=== PATIENT | male | born 1945 | race Caucasian/White ===

== ENCOUNTER 2021-12-19 11:40 | Emergency (ER) | payer MEDICARE, OTHER ==
[2021-12-19] MEDS ORDERED: SODIUM CHLORIDE 0.9% 1,000 ML IV STA (11:54)
--- NOTE | 2021-12-19 11:56 | ED Physician Documentation ---
History of Present Illness - Stated complaint Stated Complaint: SYNCOPE - Chief complaint Chief Complaint: Neuro - Additonal information Additional information: 76-year-old male presents emergency department for evaluation of a near syncopal episode. This gentleman had driven to a local business got out of his car and walked into the store when he began to feel suddenly lightheaded and as though he was going to pass out. 2 security guards helped him to his feet. He states that he lost control of his body but did not lose consciousness. States that this is happened 2 times before. He states it has always occurred after exertion or ambulation. Denies chest pain or shortness of air though he does have a history of COPD. He states previously when he has been seen in the ER they have not found an etiology for his near syncope/syncopal episodes. Past medical history is most significant for hypertension, coronary artery disease status post stenting x2, COPD not oxygen dependent and diabetes managed on Victoza. He also has a history of lung cancer status post partial lobectomy on the right side in 1990. Review of Systems Constitutional: denies: Fever, Chills Eyes: reports: Reviewed and negative Cardiac: denies: Chest pain / pressure, Palpitations Respiratory: denies: Dyspnea, Cough GI: denies: Abdominal Pain Skin: reports: Reviewed and negative Musculoskeletal: reports: Reviewed and negative Neurologic: reports: Near syncope, Syncope. denies: Generalized weakness, Seizure, Confused, Headache, Head injury, LOC Psychiatric: reports: Reviewed and negative PD PAST MEDICAL HISTORY - Present Medications Home Medications: Ambulatory Orders Medication Instructions Recorded Confirmed Celecoxib [Celebrex] 200 mg PO DAILY 12/19/21 12/19/21 Clopidogrel [Plavix] 75 mg PO DAILY 12/19/21 12/19/21 Cyclobenzaprine [Flexeril] 10 mg PO TID PRN 12/19/21 12/19/21 Evolocumab [Repatha Sureclick] 1 ml SQ Q14D 12/19/21 12/19/21 Fluticasone/Salmeterol [Advair 1 puffs IH BID 12/19/21 12/19/21 250-50 Diskus] Furosemide [Lasix] 20 mg PO DAILY 12/19/21 12/19/21 Liraglutide [Victoza 2-Wilbert] 1.8 mg SQ DAILY 12/19/21 12/19/21 Losartan Potassium 25 mg PO DAILY 12/19/21 12/19/21 Metoprolol Succinate [Toprol Xl] 25 mg PO DAILY 12/19/21 12/19/21 Nystatin Cream [Mycostatin Cream] 1 applic TOP BID 12/19/21 12/19/21 Nystatin [Mycostatin] 5 ml PO Q6HR 12/19/21 12/19/21 Rosuvastatin Calcium [Crestor] 5 mg PO DAILY 12/19/21 12/19/21 Sertraline HCl 100 mg PO DAILY 12/19/21 12/19/21 Tamsulosin [Flomax] 0.4 mg PO DAILY 12/19/21 12/19/21 Zolpidem [Ambien] 5 mg PO HS 12/19/21 12/19/21 oxyCODONE [Roxicodone] 5 mg PO Q6HR PRN 12/19/21 12/19/21 oxyCODONE/ACET 5/325 [Percocet 5 1 each PO Q4-6H 12/19/21 12/19/21 mg/325 mg] - Allergies Allergies/Adverse Reactions: Allergies Allergy/AdvReac Type Severity Reaction Status Date / Time meperidine [From Demerol] Allergy Rash Verified 12/19/21 11:54 Penicillins Allergy Hives Verified 12/19/21 11:54 PD ED PE NORMAL - General General: Alert and oriented X 3, No acute distress, Well developed/nourished - HEENT HEENT: Atraumatic, Moist mucous membranes - Neck Neck: Supple, no meningeal sign, No adenopathy - Cardiac Cardiac: RRR, No murmur, No gallop - Respiratory Respiratory: No respiratory distress, Clear bilaterally - Abdomen Abdomen: Normal bowel sounds, Soft - Extremities Extremities: No deformity, No tenderness to palpate, Normal ROM s pain - Neuro Neuro: Alert and oriented X 3, search engineer 2-12 intact, No motor deficit, Normal speech Eye Opening: Spontaneous Motor: Obeys Commands Verbal: Oriented GCS Score: 15 - Psych Psych: Normal mood Results - Vitals Vitals: Vital Signs - 24 hr 12/19/21 12/19/21 12/19/21 11:42 12:06 12:23 Temperature 37.2 C Heart Rate 113 H 85 Heart Rate [ 114 H Sitting] Heart Rate [ Standing] Heart Rate [ 104 H Supine] Respiratory 22 18 Rate Blood Pressure 129/70 116/67 Blood Pressure 79/66 L [Sitting] Blood Pressure [Standing] Blood Pressure 105/61 [Supine] O2 Saturation 96 93 12/19/21 13:43 Temperature Heart Rate Heart Rate [ 102 H Sitting] Heart Rate [ 108 H Standing] Heart Rate [ 96 Supine] Respiratory Rate Blood Pressure Blood Pressure 144/83 H [Sitting] Blood Pressure 129/60 [Standing] Blood Pressure 149/62 H [Supine] O2 Saturation Oxygen O2 Source Room air - EKG (time done) 1205 Rate: Rate (enter#) (111) Rhythm: Sinus tachycardia Henry: Normal Intervals: No: Prolonged QT QRS: Normal Ischemia: Normal ST segments Compare to prior EKG: Old EKG unavailable Computer interpretation: Agree with computer - Labs Labs: Laboratory Tests 12/19/21 12/19/21 12/19/21 12:00 12:00 12:00 WBC 9.2 RBC 3.69 L Hgb 11.3 L Hct 34.8 L MCV 94.3 H MCH 30.6 MCHC 32.5 RDW 14.4 Plt Count 255 MPV 8.5 Neut # (Auto) 7.4 H Lymph # (Auto) 0.9 L Ripley # (Auto) 0.8 Eos # (Auto) 0.0 Baso # (Auto) 0.0 Absolute Nucleated RBC 0.00 Nucleated RBC % 0.0 Sodium 139 Potassium 4.0 Chloride 105 Carbon Dioxide 24 Anion Gap 10.0 BUN 24 H Creatinine 1.1 Estimated GFR (MDRD) 65 L Glucose 147 H Calcium 9.3 Total Bilirubin 0.6 AST 21 ALT 16 Alkaline Phosphatase 68 Troponin I High Sens 12.4 Total Protein 7.4 Albumin 3.6 Globulin 3.8 Albumin/Globulin Ratio 0.9 L Lipase 28 - Rads (name of study) cxr Radiology: Final report received (Mild effusion with increased vascularity consistent with edema.) PD MEDICAL DECISION MAKING - ED course Complexity details: reviewed results, re-evaluated patient, considered differential, d/w patient ED course: This is a very pleasant well-appearing 76-year-old male that comes the emergency department after a syncopal episode that occurred this afternoon when he is walking into a bank. He has had 2 syncopal episodes in the past and they have a lways Occurred after ambulation and exertion though the patient denies any chest pain or shortness of air. On presentation to the emergency department the patient is alert and well- appearing and no focal deficits are noted. His vital signs are stable though initially mildly tachycardic. We did obtain a CBC electrolytes as well as a high-sensitivity troponin and these were without worrisome findings. He does have a history of lung cancer and has had a partial lobectomy on the right side. Chest x-ray does show an effusion in the space which would be expected. Initially we did check orthostatic blood pressures and found that was standing his blood pressure dropped significantly. At this point we gave him 1 L of IV fluids and on repeat his orthostatics were unchanged and normal. I suspect that this gentleman has orthostatic hypotension as a cause of his syncope. He is encouraged to follow very closely with Dr. Reba Kovacs his workforce manager as well as his primary care doctor. It may be appropriate to consider adjusting his blood pressure medications in the setting and he feels that he has good follow-up and feels comfortable and ready for discharge home. Emergent return precautions otherwise discussed. Departure - Departure Disposition: 01 Home, Self Care Clinical Impression: Syncope and collapse, Orthostatic hypotension Condition: Stable Record reviewed to determine appropriate education?: Yes Instructions: ED Hypotension Orthostatic Follow-Up: Elyse Regan MD [Primary Care Provider] - Comments: Filiberto sandoval are seen today in the emergency department for a fainting episode that occurred after you walked from your car into a bank. When you arrived to the emergency department you had a very mildly elevated heart rate but your blood pressure was normal. When we checked your blood pressures in various positions such as laying flat, sitting and standing we did note that your blood pressure dropped markedly when you stood up. This is a condition called orthostatic hypotension. Here in the emergency department we did give you some IV fluids and on repeat evaluation your orthostatic hypotension had resolved. However encourage you to follow closely with Dr. Elyse Regan as well as your workforce manager. Given that your blood pressures are on the normal range it may be appropriate to consider adjusting your blood pressure medications to allow you to have a slightly higher blood pressures moving forward. If at any point you find that you are developing chest pain, have severe shortness of air, recurrent fainting episodes or any other emergent concerns and please return immediately to the emergency department for a second evaluation.
[2021-12-19 12:06] LABS: BASOPHILS % (AUTO) 0.4 %; EOSINOPHILS % (AUTO) 0.3 %; HCT - HEMATOCRIT 34.8 % (42.0-52.0); HGB - HEMOGLOBIN 11.3 g/dL (14.0-18.0); LYMPHOCYTES # (AUTO) 0.9 10^3/uL (1.5-3.5); LYMPHOCYTES % (AUTO) 10.1 %; MEAN CORPUSCULAR HEMOGLOBIN 30.6 pg (27.0-31.0); MEAN CORPUSCULAR HGB CONC 32.5 g/dL (32.0-36.0); MEAN CORPUSCULAR VOLUME 94.3 fL (80.0-94.0); MEAN PLATELET VOLUME 8.5 fL (7.4-11.4); MONOCYTES # (AUTO) 0.8 10^3/uL (0.0-1.0); MONOCYTES % (AUTO) 8.2 %; NEUTROPHILS # (AUTO) 7.4 10^3/uL (1.5-6.6); NEUTROPHILS % (AUTO) 80.1 %; PLT - PLATELET COUNT 255 10^3/uL (130-450); RED BLOOD COUNT 3.69 10^6/uL (4.70-6.10); RED CELL DISTRIBUTION WIDTH 14.4 % (12.0-15.0); WHITE BLOOD COUNT 9.2 x10^3/uL (4.8-10.8)
--- NOTE | 2021-12-19 12:15 | XRAY Report ---
PROCEDURE: Chest 1 View X-Ray INDICATIONS: Chest Pain TECHNIQUE: One view of the chest was acquired. COMPARISON: None FINDINGS: Surgical changes and devices: None. Lungs and pleura: Mild appearance of increased pulmonary vascularity. There is mild right effusion. Mediastinum: Mediastinal contours appear normal. Heart size is normal. Bones and chest wall: No suspicious bony lesions. Overlying soft tissues appear unremarkable. IMPRESSION: Mild effusion with increased vascularity consistent with edema. Reviewed by: Laine Burgess MD on 12/19/2021 12:14 PM PDT Approved by: Laine Burgess MD on 12/19/2021 12:14 PM PDT Station ID: [id number]
[2021-12-19 12:21] LABS: ALBUMIN 3.6 g/dL (3.2-5.5); ALBUMIN/GLOBULIN RATIO 0.9 (1.0-2.2); BILIRUBIN,TOTAL 0.6 mg/dL (0.2-1.0); CALCIUM 9.3 mg/dL (8.5-10.3); CREATININE 1.1 mg/dL (0.6-1.2); TOTAL PROTEIN 7.4 g/dL (6.7-8.2)
[2021-12-19 14:10] VITALS: BP 109/67
== END 2021-12-19 14:25 | disposition home or self-care (01) ==
LOC: ED 11:40
DX: I95.1 Orthostatic hypotension (principal)
CPT/HCPCS: 36415; 80053; 83690; 84484; 85025; 93005; 96360; 99283

== ENCOUNTER → 2021-12-19 | Outpatient (CLI) | payer MEDICARE, OTHER | END | disposition critical access hospital (66) | LOC: EMS 11:36 | DX: R06.09 Other forms of dyspnea (principal); R55 Syncope and collapse; R00.0 Tachycardia, unspecified | CPT/HCPCS: A0425; A0429 ==